=== PATIENT | male | born 1940 | race Native Hawaiian/Other Pacific Islander ===

== ENCOUNTER 2021-09-19 15:47 | Emergency (ER) | payer OTHER ==
[~2021-09-19] VITALS: Ht 177.8 cm; Wt 69.6 kg
[2021-09-19 15:47] VITALS: TEMP 98.4
[2021-09-19 16:18] LABS: PLATELET COUNT 192 K/uL (142-355)
[2021-09-19 16:22] LABS: POTASSIUM 4.1 mmol/L (3.6-5.2)
[2021-09-19 16:47] VITALS: BP 127/87
[2021-09-19] MEDS ORDERED: DONEPEZIL HCL23 MG PO (20:06)
[2021-09-19] MEDS ORDERED: MYRBETRIQ50 MG PO (20:07)
[2021-09-19] MEDS ORDERED: QUETIAPINE100 MG PO (20:08)
[2021-09-19] MEDS ORDERED: ZOLOFT25 MG PO (20:10)
[2021-09-19] MEDS ORDERED: TUMS500 MG PO (20:12)
[2021-09-19] MEDS ORDERED: QUETIAPINE25 MG PO (20:16)
== END 2021-09-19 16:51 | disposition still patient (30) ==
LOC: ED 16:05
PROVIDERS: Hospitalist
DX: F25.8 Other schizoaffective disorders (principal); F22 Delusional disorders; Z11.52 Encounter for screening for COVID-19; Z04.6 Encounter for general psychiatric examination, requested by authority
CPT/HCPCS: 80053; 85027; 87635; 93005; 99283; U0003